=== PATIENT | female | born 1985 | race African-American/Black ===

== ENCOUNTER 2018-05-08 07:46 | Outpatient (CLI) | payer MEDICAID ==
--- NOTE | 2018-05-08 08:46 | ULT ---
ULTRASOUND PELVIS TRANSABDOMINAL: HISTORY: Uterine leiomyoma. COMPARISON: None. FINDINGS: The uterus measures 12.2 x 6.5 x 8.1 cm. Endometrial thickness is 8 mm. Left ovary not visualized. Right ovary measures 3 x 2.7 x 1.6 cm with a 2.2 cm cyst. Corresponding to the patient's known fibroid is a large heterogeneous mass in the uterine fundus grea ter than 6.7 x 5.3 x 6.4 cm and is well defined and round. IMPRESSION: Large fundal fibroid measuring up to 6.7 cm. Clinical correlation with prior imaging. POS: CET
== END 2018-05-08 07:47 | disposition home or self-care (01) ==
LOC: BICULT 07:46
PROVIDERS: ATTEND Nurse Practitioner
DX: D25.9 Leiomyoma of uterus, unspecified (principal)
CPT/HCPCS: 76856; 93976